=== PATIENT | male | born 1935 | race Caucasian/White ===

== ENCOUNTER 2018-02-13 02:58 | Emergency (ER) | payer MEDICARE, OTHER ==
[~2018-02-13] VITALS: Ht 177.8 cm; Wt 77.3 kg
[2018-02-13 03:07] VITALS: BP 144/70
[2018-02-13] MEDS ORDERED: 0.9% SODIUM CHLORIDE 10 ML SYRINGE IVP PRN (03:15)
[2018-02-13] MEDS ORDERED: ASCO500 PO (03:17)
[2018-02-13] MEDS ORDERED: TIOT4MIS3 IH (03:17)
[2018-02-13] MEDS ORDERED: FURO20 PO (03:17)
[2018-02-13] MEDS ORDERED: LACT30L PO (03:17)
[2018-02-13] MEDS ORDERED: ENOX40DI9 SQ (03:17)
[2018-02-13] MEDS ORDERED: KDUR20 PO (03:17)
[2018-02-13] MEDS ORDERED: MULT1TAB70 PO (03:17)
[2018-02-13] MEDS ORDERED: AMIN30LI28 PO (03:17)
== END 2018-02-13 06:17 | disposition expired ==
LOC: EMS 02:58
DX: J96.90 Respiratory failure, unspecified, unspecified whether with hypoxia or hypercapnia (principal); J44.9 Chronic obstructive pulmonary disease, unspecified; F17.210 Nicotine dependence, cigarettes, uncomplicated; F41.9 Anxiety disorder, unspecified; G30.9 Alzheimer's disease, unspecified; F02.80 Dementia in other diseases classified elsewhere, unspecified severity, without behavioral disturbance, psychotic disturbance, mood disturbance, and anxiety; Z79.899 Other long term (current) drug therapy
CPT/HCPCS: 94660; 99285